=== PATIENT | female | born 1980 | race African-American/Black ===

== ENCOUNTER 2024-07-25 16:09 | Emergency (ER) | payer MEDICAID ==
[~2024-07-25] VITALS: Ht 170.2 cm; Wt 114.5 kg
[2024-07-25 16:15] VITALS: BP 113/73; PULSE 95; RESP 18; TEMP 98.2; O2SAT 97
[2024-07-25 16:42] LABS: BASOPHILS # (AUTO) 0.1 X10'3 (0-0.2); BASOPHILS % (AUTO) 0.8 % (0-1); EOSINOPHILS # (AUTO) 0.3 X10'3 (0-0.9); EOSINOPHILS % (AUTO) 1.9 % (0-6); HEMATOCRIT 37.8 % (35.0-45.0); HEMOGLOBIN 12.8 g/dl (12.0-16.0); LYMPHOCYTES # (AUTO) 2.5 X10'3 (1.1-4.8); LYMPHOCYTES % (AUTO) 18.7 % (21-51); MEAN CORPUSCULAR HEMOGLOBIN 28.6 PG (27.0-31.0); MEAN CORPUSCULAR HGB CONC 33.9 g/dL (33.0-36.5); MEAN CORPUSCULAR VOLUME 84.6 FL (78-98); MEAN PLATELET VOLUME 8.3 FL (7.4-10.4); MONOCYTES # (AUTO) 0.6 X10'3 (0-0.9); MONOCYTES % (AUTO) 4.7 % (2-12); NEUTROPHILS # (AUTO) 9.7 X10'3 (1.8-7.7); NEUTROPHILS % (AUTO) 73.9 % (42-75); PLATELET COUNT 360 X10'3 (140-440); RED BLOOD COUNT 4.47 X10'6 (4.20-5.60); RED CELL DISTRIBUTION WIDTH 14.2 % (11.5-14.5); WHITE BLOOD COUNT 13.2 X10'3 (4.5-11.0)
[2024-07-25 16:58] LABS: ALANINE AMINOTRANSFERASE 28 U/L (12-78); ALBUMIN 3.3 G/DL (3.4-5.0); ALBUMIN/GLOBULIN RATIO 0.7 (1.1-1.5); ALKALINE PHOSPHATASE 89 IU/L (46-116); ANION GAP 11 (8-16); ASPARTATE AMINO TRANSFERASE 29 U/L (10-37); BILIRUBIN,TOTAL 0.4 MG/DL (0.1-1.0); BLOOD UREA NITROGEN 7 MG/DL (7-18); BUN/CREATININE RATIO 8.4 (10.0-20.0); CALCIUM 9.1 MG/DL (8.5-10.1); CHLORIDE 105 MMOL/L (99-107); CREATININE 0.83 MG/DL (0.40-0.90); GLUCOSE 113 MG/DL (70-104); LIPASE 75 U/L (16-77); POTASSIUM 3.9 MMOL/L (3.5-5.1); SODIUM 142 MMOL/L (135-145); TOTAL CARBON DIOXIDE 25.7 MMOL/L (24-32); eCRCL 83 ML/MIN; eGFR 74 ML/MIN
== END 2024-07-25 22:27 | disposition left against medical advice (07) ==
LOC: ER 16:10
DX: R10.11 Right upper quadrant pain (principal); Z88.0 Allergy status to penicillin
CPT/HCPCS: 36415; 80053; 83690; 85025; 99283

== ENCOUNTER 2024-08-19 09:00 | Emergency (ER) | payer MEDICAID ==
[~2024-08-19] VITALS: Ht 167.6 cm; Wt 115.0 kg
[2024-08-19 09:08] VITALS: BP 133/80; PULSE 96; RESP 18; O2SAT 98
[2024-08-19] MEDS ORDERED: buprenorphine/naloxone 8MG-2MG SUBlingual film SL STA (11:01)
--- NOTE | 2024-08-19 11:01 | Physician Documentation ---
HPI ~ General Chief Complaint: See Chief Complaint Stated Complaint: MED REQUEST Time Seen by MD: 09:35 Primary Medical Doctor: [facility] [place]. (PAIN MGMT) Source: patient, family History of Present Illness HPI Comments Patient is seen today with complaints of having run out of her buprenorphine 600 mcg Belbuca strips/films about a week ago. Patient states she had to switch providers and can not get an appointment for another 10 days. Patient has no new or other concern or complaint at this time. Patient states she takes her Belbuca 600 mcg films twice a day sublingually. Patient is complaining of opiate withdrawal symptoms. He has pain. Patient denies any saddle anesthesia. Patient does admit to diarrhea. The patient does also admit to taking tramadol daily. Patient states she gets a script of 90 tramadol 50 mg per month. Patient has no other concern or complaint at this time. Medication Reconciliation Allergies: Coded Allergies: Penicillins (Unverified Allergy, Unknown, 07/25/24) duloxetine (Unverified Allergy, Unknown, 07/25/24) Review of Systems Constitutional: Denies: chills, fever, weakness Eyes: Denies: pain, blurred vision ENT: Denies: ear pain, nose pain, throat pain, mouth pain Respiratory: Denies: cough, shortness of breath Cardiovascular: Denies: chest pain, palpitations Gastrointestinal: Denies: abdominal pain, nausea, vomiting Genitourinary: Denies: burning, dysuria Female Genitalia: Denies: vaginal discharge, pelvic pain Neurological: Denies: headache, dizziness Musculoskeletal: Denies: pain, swelling Integumentary: Denies: rash, lesions Allergic/Immunologic: Denies: hives, itching Hematologic/Lymphatic: Denies: no symptoms reported Psychiatric: Denies: depression, anxiety Physical Exam Physical Exam Vital Signs: Temperature: 98.2, Heart Rate: 96, Respiratory Rate: 18, BP: 133/80, Pulse Oximetry: 98, Weight: 115.000 Physical Exam General: Awake and Alert, no acute distress. HEENT: Conjunctiva pink, Sclera clear, Mucus Membranes moist. Neck: Supple without masses and tenderness. Resp: Unlabored. Lungs clear to auscultation bilaterally. Heart: Regular Rate and rhythm, normal S1 and S2 without murmur, rub or gallop. Abdomen: Soft and non tender no organomegaly Extremities: No cyanosis,clubbing or edema. Skin: Warm and Dry. Progress Results/Orders Results/Orders Vital Signs 08/19/24 09:08 Temp 98.2 Pulse 96 Resp 18 B/P (MAP) 133/80 Pulse Ox 98 Medical Decision Making Findings Patient is seen today with complaints of having run out of her buprenorphine 600 mcg Belbuca strips/films about a week ago. Patient states she had to switch providers and can not get an appointment for another 10 days. Patient has no new or other concern or complaint at this time. Patient states she takes her Belbuca 600 mcg films twice a day sublingually. Patient is complaining of opiate withdrawal symptoms. He has pain. Patient denies any saddle anesthesia. Patient does admit to diarrhea. Patient was given a prescription for Belbuca 600 mcg films, one film sublingual twice a day for 10 days. Patient will follow up with her chronic paint stockman as soon as possible. I did advise patient that when she starts taking the Belbuca films again she needs to have stopped the tramadol for at least 16 hours before starting the Belbuca again. Patient voiced understanding. Departure Disposition: HOME / SELF CARE / HOMELESS Impression: Primary Impression: Chronic pain Qualified Codes: G89.29 - Other chronic pain Condition: Stable Discharge Instructions: Chronic Back Pain, [id number] Additional Instructions: Patient was given a prescription for Belbuca 600 mcg films, one film sublingual twice a day for 10 days. Patient will follow up with her chronic paint stockman as soon as possible. I did advise patient that when she starts taking the Belbuca films again she needs to have stopped the tramadol for at least 16 hours before starting the Belbuca again. Patient voiced understanding. Referrals: NO PRIMARY CARE PROVIDER (PCP) Prescriptions Buprenorphine HCl (Belbuca) 600 Mcg Film 1 STRIP PO Q12H for 10 Days, #20 STRIP 0 Refills Prov: MIRTA SEN 08/19/24 Signature Scribe Signature: No scribe Attestation: No scribe MIRTA SEN August 19, 2024 11:01
[2024-08-19] MEDS ORDERED: BUPR600F2 PO (11:04)
[2024-08-19 12:55] VITALS: TEMP 98.2
== END 2024-08-19 12:57 | disposition home or self-care (01) ==
LOC: ER 09:00
DX: F11.23 Opioid dependence with withdrawal (principal); G89.29 Other chronic pain; Z88.0 Allergy status to penicillin; Z88.8 Allergy status to other drugs, medicaments and biological substances
CPT/HCPCS: 99281

== ENCOUNTER 2024-10-04 15:47 | Emergency (ER) | payer MEDICAID ==
[~2024-10-04] VITALS: Ht 167.6 cm; Wt 117.5 kg
[~2024-10-04 15:47] MED LIST: BUPR600F2 PO
[2024-10-04 15:51] VITALS: BP 110/71; PULSE 85; RESP 18; O2SAT 97
--- NOTE | 2024-10-04 16:02 | Physician Documentation ---
HPI ~ General Chief Complaint: Medication Refill Stated Complaint: ALL OVER BODY PAIN Time Seen by MD: 17:24 Primary Medical Doctor: [facility] [place]. (PAIN MGMT) History of Present Illness HPI Comments This is a 43-year-old female with a history of chronic pain and nonalcoholic fatty liver disease who presents requesting refill of chronic pain medications and Wegovy. Patient reports that she is new to the area and moved from the [facility] or she was seeing a plate painter. Medication Reconciliation Allergies: Coded Allergies: Penicillins (Unverified Allergy, Unknown, 07/25/24) duloxetine (Unverified Allergy, Unknown, 07/25/24) Scheduled Buprenorphine HCl (Belbuca), 1 STRIP PO Q12H Review of Systems ROS As stated above in the HPI, otherwise all systems are reviewed and negative. Physical Exam Physical Exam Vital Signs: Temperature: 97.9, Source: Temporal, Heart Rate: 85, Respiratory Rate: 18, BP: 110/71, Pulse Oximetry: 97, Weight: 117.500 Oxygen Flow Rate: 0 Physical Exam VITALS: Reviewed and as above. GENERAL: Alert, nontoxic appearing, no apparent distress. RESPIRATORY: No increased work of breathing, no respiratory distress, speaking in full clear sentences Progress Results/Orders Results/Orders Vital Signs 10/04/24 10/04/24 15:51 17:44 Temp 97.9 97.9 Pulse 85 Resp 18 B/P (MAP) 110/71 Pulse Ox 97 O2 Flow Rate 0 Medical Decision Making Findings MSE performed in triage and patient returned to ED lobby by nursing staff This 43-year-old female with history of chronic pain presented requesting refill of multiple opioid medications has been previously prescribed for chronic pain, review of records indicate patient has already had at least one refill of the prescriptions at the emergency department and has been directed to follow up with her plate painter for further refills, due to this finding patient has been advised that we are unable to continue refilling these controlled substances from the emergency department. Patient additionally requested refill of Wegovy from the emergency department however she has been advised that this was go through her primary care provider for refill. Patient is otherwise well-appearing with a benign physical exam in his appropriate for outpatient follow up with her primary care provider and plate painter. Patient has been advised to follow up with the specialists and provided return to care precautions which she verbalized understanding of. Patient was offered a dose of pain medication in the emergency department ho wever declined. Differential Dx:Considerations: Include: Adverse circumstances, Economic, Psychosocial, Medical services unavail., Medication refill, Medication non- compliance Departure Time of Disposition: 17:25 Disposition: 01 HOME / SELF CARE / HOMELESS Impression: Primary Impression: Chronic pain Qualified Codes: G89.29 - Other chronic pain Condition: Improved Discharge Instructions: Medical Screening Exam Additional Instructions: Unfortunately we are unable to continue to refill your chronic pain medication prescriptions from the emergency department you will need to see plate painter or primary care provider to manage these medications. Please contact your plate painter as soon as possible. Please follow up with your primary care provider or the [facility] in the next few days. Please return to the emergency department for any new or worsening concerning symptoms. Referrals: NO PRIMARY CARE PROVIDER (PCP) Education Educated: Patient Educated regarding: diagnosis, treatment, prognosis, need for follow up Signature Scribe Signature: No scribe Attestation: The note accurately reflects work and decisions made by me.ANTOINETTE Manuel 10/04/24 22:01 WHIT AGUILAR Oct 04, 2024 16:01 ENEIDA ASKEW MD Oct 06, 2024 07:38
[2024-10-04 17:44] VITALS: TEMP 97.9
== END 2024-10-04 17:46 | disposition home or self-care (01) ==
LOC: ER 15:48
DX: G89.29 Other chronic pain (principal); K76.0 Fatty (change of) liver, not elsewhere classified; Z88.0 Allergy status to penicillin
CPT/HCPCS: 99281; 99282